=== PATIENT | male | born 1945 | race Caucasian/White ===

== ENCOUNTER 2020-09-10 12:27 | Emergency (ER) | payer MEDICARE, BC ==
[2020-09-10 13:03] VITALS: BP 154/90; PULSE 77
[2020-09-10 13:35] LABS: ANION GAP 14.6 mEq/L (7-13); CHLORIDE,CL 100 mmol/L (98-107); SODIUM,NA 139 mmol/L (136-145)
--- NOTE | 2020-09-10 13:37 | CT ---
EXAMINATION: Head wo Cont SEX: Male AGE: 74 years CLINICAL HISTORY: 74-year-old hypertensive male with cardiac disease (two Heart attacks) and acute TIA (difficulties speaking). Note: Patient currently on anticoagulant therapy. Known prostate cancer. No comparison exams this Hospital. Scan technique: Volume acquisition of data emergency unenhanced CT scan of the head and brain obtained with patient lying supine on the Siemens multislice scanner [place], [place]. All data archived in the PACS system for storage, reformatting axial/sagittal/coronal planes and study (bone/brain windows). Interpretation: Abnormal. 1. Asymmetric ischemic infarct thalamus, on the right. No associated edema, bleed or surrounding mass effect. 2. Atrophy symmetric normal and consistent with age. Underlying mirror-image normal ventricular system. 3. *Asymmetric, diffuse, increased density left frontal-parietal lobe (effacement underlying cerebral sulci suggesting edema). No sign of acute intracerebral, intraventricular or subarachnoid bleed but suggest follow-up unenhanced MRI. 4. Subtle microvascular ischemic change contralateral right parietal lobe, left frontal and left occipital lobes. 5. No supratentorial or posterior fossa mass lesion. No hydrocephalus. 6. Uniformly thick bony calvarium. No sign of skull fracture, underlying brain contusion or abnormal extracerebral/intracranial epidural or subdural hematoma. Symmetric clear pneumatization of the paranasal and mastoid sinuses.
[2020-09-10] MEDS ORDERED: Gadobenate Dimeglumine 529 MG/ML 20 ML SDV IVPUSH ONE ×2 (14:47→15:15)
--- NOTE | 2020-09-10 15:20 | EDM.PDOC ---
<Seun Salguero Ewa - Last Filed: 09/10/20 16:16> ED HPI GENERAL MEDICAL PROBLEM - General Chief Complaint: Neuro Symptoms/Deficits Stated Complaint: CAN'T SPEAK, NOT A STROKE Time Seen by Provider: 09/10/20 14:00 Source of Information: Reports: Patient, Family History Limitations: Reports: No Limitations - History of Present Illness INITIAL COMMENTS - FREE TEXT/NARRATIVE: 74 y/o M c/o difficulty speaking and uncontrollable facial jerking. Pt was evaluated at [facility] in [place] 10 days ago for the same presentation. Pt is with his grandson who is helping with hx. 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 Grandson states the hospital reportedly said that the tumor was unlikely the cause of the pts symptoms. He has no other complaints and is able to communicate with writing and some speech. Felicia states pt has normal cognition and is acting like himself but cannot form words or stop the jerking of his muscles of his lower jaw. Felicia also states that the pts memory is intact and he has been able to recall all events of today as well as previous days. Hx of 2 [place] unknown stents. Hx of vertigo, htn. Onset: Today, Sudden Onset Time: 11:00 Location: Reports: Head, Face Severity: Mild Improves with: Reports: None Worsens with: Reports: None - Related Data Allergies Allergy/AdvReac Type Severity Reaction Status Date / Time No Known Allergies Allergy Verified 09/10/20 13:03 Home Meds: Home Meds Baby Aspirin 1 tab PO DAILY 09/10/14 [History] Metoprolol Tartrate [Lopressor] 37.5 mg PO DAILY 09/10/20 [History] Simvastatin [Zocor] 10 mg PO BEDTIME 09/10/20 [History] amLODIPine Besylate [Amlodipine Besylate] 10 mg PO DAILY 09/10/20 [History] lisinopriL [Zestril] 5 mg PO DAILY 09/10/20 [History] Past Medical History HEENT History: Reports: Hard of Hearing Other HEENT History: wears glasses Cardiovascular History: Reports: Bypass, High Cholesterol, Hypertension, [place] Respiratory History: Reports: None Gastrointestinal History: Reports: None Genitourinary History: Reports: None Musculoskeletal History: Reports: None Neurological History: Reports: Seizure, Vertigo Other Neuro History: question a seizure 10 days ago, has had vertigo in the past Psychiatric History: Reports: None Endocrine/Metabolic History: Reports: None Hematologic History: Reports: None Immunologic History: Reports: None Oncologic (Cancer) History: Reports: Prostate Dermatologic History: Reports: None - Infectious Disease History Infectious Disease History: Reports: Chicken Pox, Measles, Mumps - Past Surgical History Head Surgeries/Procedures: Reports: None HEENT Surgical History: Reports: Tonsillectomy Social & Family History - Tobacco Use Tobacco Use Status *Q: Never Tobacco User Second Hand Smoke Exposure: No - Caffeine Use Caffeine Use: Reports: Coffee - Recreational Drug Use Recreational Drug Use: No ED ROS GENERAL - Review of Systems Review Of Systems: Comprehensive ROS is negative, except as noted in HPI. ED EXAM, NEURO - Physical Exam Exam: See Below Exam Limited By: No Limitations General Appearance: Alert Eye Exam: Bilateral Eye: PERRL Ears: Normal External Exam, Normal Canal, Hearing Grossly Normal, Normal TMs Nose: Normal Inspection, Normal Mucosa, No Blood Throat/Mouth: Other (Dysphasia, abnormal facial movements) Head Exam: Atraumatic, Normocephalic Neck: Normal Inspection, Supple, Non-Tender, Full Range of Motion Respiratory/Chest: No Respiratory Distress, Lungs Clear, Normal Breath Sounds, No Accessory Muscle Use, Chest Non-Tender Cardiovascular: Normal Peripheral Pulses, Regular Rate, Rhythm, No Edema, No Gallop, No JVD, No Murmur, No Rub GI/Abdominal: Normal Bowel Sounds, Soft, Non-Tender, No Organomegaly, No Distention, No Abnormal Bruit, No Mass (Male) Exam: Deferred Rectal (Males) Exam: Deferred Neurological: Alert, Normal Mood/Affect, Normal Dorsiflexion, CN II-XII Intact, Normal Plantar Flexion, Normal Gait, Normal Reflexes Back Exam: Normal Inspection, Full Range of Motion, NT Extremities: Normal Inspection, Normal Range of Motion, Non-Tender, No Pedal Edema, Normal Capillary Refill Psychiatric: Normal Affect, Normal Mood Skin Exam: Warm, Dry, Intact, Normal Color, No Rash Departure - Departure Time of Disposition: 16:11 Disposition: DC/Tfer to Acute Hospital 02 Condition: Serious Clinical Impression: CVA (cerebral vascular accident) Qualifiers: CVA mechanism: unspecified Qualified Code(s): I63.9 - Cerebral infarction, unspecified - Discharge Information *PRESCRIPTION DRUG MONITORING PROGRAM REVIEWED*: Not Applicable *COPY OF PRESCRIPTION DRUG MONITORING REPORT IN PATIENT CHERI: Not Applicable Referrals: PCP,None [Primary Care Provider] - Forms: ED Department Discharge Care Plan Goals: Discussed pts hx, exam, labs, ct, mri, ekg and treatments with Dr. Martinez (Neurology) at [facility] and Dr. Chavez of [facility], [place]. Pt was accepted as a transfer by Dr. Chavez. Sepsis Event Note (ED) - Evaluation Sepsis Screening Result: No Definite Risk <Raymond Lechuga - Last Filed: 09/11/20 07:17> Course - Vital Signs Last Recorded V/S: Last Vital Signs Temp 36.8 C 09/10/20 12:47 Pulse 77 09/10/20 12:47 Resp 16 09/10/20 12:47 BP 154/90 H 09/10/20 12:47 Pulse Ox 97 09/10/20 12:47 - Orders/Labs/Meds Labs: Laboratory Tests 09/10/20 09/10/20 09/10/20 Range/Units 13:05 13:05 13:05 WBC 6.2 (5.0-10.0) 10^3/uL RBC 5.01 (4.6-6.2) 10^6/uL Hgb 15.0 (14.0-18.0) g/dL Hct 44.0 (40.0-54.0) % MCV 87.8 (80-100) fL MCH 29.9 (27.0-34.0) pg MCHC 34.1 (33.0-35.0) g/dL Plt Count 182 (150-450) 10^3/uL Neut % (Auto) 67.5 (42.2-75.2) % Lymph % (Auto) 16.5 L (20.5-50.1) % [place] % (Auto) 12.5 H (2-8) % Eos % (Auto) 3.2 H (1.0-3.0) % Baso % (Auto) 0.3 (0.0-1.0) % PT 9.9 (9.0-12.0) SEC INR 1.0 (0.9-1.2) Sodium 139 (136-145) mmol/L Potassium 3.6 (3.5-5.1) mmol/L Chloride 100 (98-107) mmol/L Carbon Dioxide 28 (21-32) mmol/L Anion Gap 14.6 H (7-13) mEq/L BUN 14 (7-18) mg/dL Creatinine 0.95 (0.70-1.30) mg/dL Est Cr Clr Drug Dosing 64.00 mL/min Estimated GFR (MDRD) > 60 BUN/Creatinine Ratio 14.7 (No establ ref range) Glucose 109 H (74-99) mg/dL POC Glucose (83-110) mg/dl Calcium 9.7 (8.5-10.1) mg/dL Total Bilirubin 0.7 (0.2-1.0) mg/dL AST 29 (15-37) U/L ALT 26 (16-63) U/L Alkaline Phosphatase 87 (46-116) U/L Troponin I < 0.017 (0.000-0.056) ng/mL Total Protein 8.2 (6.4-8.2) g/dL Albumin 3.9 (3.4-5.0) g/dL Globulin 4.3 Albumin/Globulin Ratio 0.9 Urine Color (YELLOW) Urine Appearance (CLEAR) Urine pH (5.0-9.0) Ur Specific [place] (1.005-1.030) Urine Protein (NEGATIVE) Urine Glucose (UA) (NEGATIVE) Urine Ketones (NEGATIVE) Urine Occult Blood (NEGATIVE) Urine Nitrite (NEGATIVE) Urine Bilirubin (NEGATIVE) Urine Urobilinogen (0.2-1.0) mg/dL Ur Leukocyte Esterase (NEGATIVE) U Hyaline Cast (Auto) Urine RBC /HPF Urine WBC (0-5/HPF) /HPF Ur Epithelial Cells (NOT SEEN) /HPF Urine Mucus (NOT SEEN) /LPF 09/10/20 09/10/20 Range/Units 13:07 13:21 WBC (5.0-10.0) 10^3/uL RBC (4.6-6.2) 10^6/uL Hgb (14.0-18.0) g/dL Hct (40.0-54.0) % MCV (80-100) fL MCH (27.0-34.0) pg MCHC (33.0-35.0) g/dL Plt Count (150-450) 10^3/uL Neut % (Auto) (42.2-75.2) % Lymph % (Auto) (20.5-50.1) % [place] % (Auto) (2-8) % Eos % (Auto) (1.0-3.0) % Baso % (Auto) (0.0-1.0) % PT (9.0-12.0) SEC INR (0.9-1.2) Sodium (136-145) mmol/L Potassium (3.5-5.1) mmol/L Chloride (98-107) mmol/L Carbon Dioxide (21-32) mmol/L Anion Gap (7-13) mEq/L BUN (7-18) mg/dL Creatinine (0.70-1.30) mg/dL Est Cr Clr Drug Dosing mL/min Estimated GFR (MDRD) BUN/Creatinine Ratio (No establ ref range) Glucose (74-99) mg/dL POC Glucose 104 (83-110) mg/dl Calcium (8.5-10.1) mg/dL Total Bilirubin (0.2-1.0) mg/dL AST (15-37) U/L ALT (16-63) U/L Alkaline Phosphatase (46-116) U/L Troponin I (0.000-0.056) ng/mL Total Protein (6.4-8.2) g/dL Albumin (3.4-5.0) g/dL Globulin Albumin/Globulin Ratio Urine Color Yellow (YELLOW) Urine Appearance Clear (CLEAR) Urine pH 6.5 (5.0-9.0) Ur Specific [place] 1.025 (1.005-1.030) Urine Protein Negative (NEGATIVE) Urine Glucose (UA) Negative (NEGATIVE) Urine Ketones Negative (NEGATIVE) Urine Occult Blood Trace-lysed H (NEGATIVE) Urine Nitrite Negative (NEGATIVE) Urine Bilirubin Negative (NEGATIVE) Urine Urobilinogen 0.2 (0.2-1.0) mg/dL Ur Leukocyte Esterase Negative (NEGATIVE) U Hyaline Cast (Auto) Few Urine RBC 0-5 /HPF Urine WBC 0-5 (0-5/HPF) /HPF Ur Epithelial Cells Few (NOT SEEN) /HPF Urine Mucus Few H (NOT SEEN) /LPF Meds: Medications Discontinued Medications Generic Name Dose Route Start Last Admin Trade Name Freq PRN Reason Stop Dose Admin Gadobenate Dimeglumine 20 ml 09/10/20 14:47 09/10/20 15:04 Multihance IVPUSH 09/10/20 14:48 20 ml ONETIME ONE Administration Gadobenate Dimeglumine 20 ml 09/10/20 15:15 Multihance IVPUSH 09/10/20 15:16 ONETIME ONE Hydromorphone HCl 1 mg 09/10/20 15:26 Dilaudid IVPUSH 09/10/20 15:27 ONETIME ONE Levetiracetam 1,000 mg/ Premix 200 mls @ 800 mls/hr 09/10/20 16:03 09/10/20 16:42 IV 09/10/20 16:04 800 mls/hr ONETIME ONE Administration Levetiracetam Confirm 09/10/20 16:37 09/10/20 16:46 Levetiracetam In Nacl (Iso-Os) Administered 09/10/20 16:38 Not Given Dose 100 mls @ as directed .ROUTE .STK-MED ONE Lorazepam 1 mg 09/10/20 15:21 09/10/20 15:26 Ativan IVPUSH 09/10/20 15:22 1 mg ONETIME ONE Administration - Re-Assessments/Exams Free Text/Narrative Re-Assessment/Exam: 09/11/20 07:16 I have examined the patient. I have discussed findings and treatment plan with the PA student. I agree with the assessment and plan in the following students note.
[2020-09-10] MEDS ORDERED: LORazepam 2 MG/ML SDV IVPUSH ONE (15:21)
[2020-09-10] MEDS ORDERED: HYDROmorphone 1 MG/ML Syringe IVPUSH ONE (15:26)
--- NOTE | 2020-09-10 15:37 | MR ---
PROCEDURE INFORMATION: Exam: MR Head Without and With Contrast Exam date and time: 09/10/2020 2:34 PM Age: 74 years old Clinical indication: Abnormal findings; Abnormal radiologic findings of head/skull; Intracranial mass/space-occupying lesion; Additional info: Possible bleed TECHNIQUE: Imaging protocol: MR of the head without and with intravenous contrast. Contrast material: MULTIHANCE; Contrast volume: 16 ml; Contrast route: INTRAVENOUS (IV); COMPARISON: CT Head wo Cont 09/10/2020 1:14 PM FINDINGS: Brain: Normal. No acute infarct. No hemorrhage. Multiple white matter hyperintensities likely due to chronic microvascular ischemia. DWI indicates restricted diffusion in the cortex of the left frontoparietal junction and peripheral aspect of the left frontal lobe. No edema or mass effect. Encephalomalacia in the right cerebellar hemisphere consistent with old infarct. Rounded enhancing dural-based lesion in the left frontal region likely represents meningioma. No surrounding edema or mass effect. Cerebral ventricles: Normal. No ventriculomegaly. Bones/joints: Unremarkable. Paranasal sinuses: Normal as visualized. No acute sinusitis. Mastoid air cells: Normal as visualized. No mastoid effusion. Orbital cavity: Unremarkable. Soft tissues: Unremarkable. IMPRESSION: 1. Acute cortical infarct in the left frontal parietal region. 2. Multiple white matter hyperintensities consistent with chronic microvascular ischemia. 3. 1.4 cm meningioma, left frontal region. 4. 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
[2020-09-10] MEDS ORDERED: levETIRAcetam in NaCl (iso-os) 1,000 MG in Premix Bag 1 BAG IV ONE ×2 (16:03)
[2020-09-10] MEDS ORDERED: levETIRAcetam in NaCl (iso-os) 100 ML ONE (16:37)
== END 2020-09-10 17:51 ==
LOC: DL.ED 12:27
DX: I63.9 Cerebral infarction, unspecified (principal); I10 Essential (primary) hypertension; E78.00 Pure hypercholesterolemia, unspecified; I25.2 Old myocardial infarction; Z79.899 Other long term (current) drug therapy; Z79.82 Long term (current) use of aspirin
CPT/HCPCS: 36415; 70450; 70553; 80053; 81001; 82962; 84484; 85025; 85610; 93005; 96365; 96375; 99285; A9577; J1953; J2060